=== PATIENT | female | born 1980 | race African-American/Black ===

== ENCOUNTER 2017-08-08 04:03 | Emergency (ER) | payer OTHER ==
[~2017-08-08] VITALS: Ht 162.6 cm; Wt 72.6 kg
--- NOTE | ~2017-08-08 | EKG ---
[address] [address] [facility] [place] [address] ELECTROCARDIOGRAM REPORT Name: GUILLEYUNIER JIMMY [facility] [id number] Admission: 08/08/17 Attend Phys: Discharge: 08/08/17 Date of : 80 Report #: [id number] THIS REPORT FOR: //name// [facility] ED Test Date: 2017-08-08 Test Time: 04:11:13 Pat Name: YUNIER HAN Department: Room: Gender: F Pharmacometrician: JAMARCUS : 1980 Requested By: Astrid Yuan Order Number: [id number] MD: Peter Langley Measurements Intervals [place] Rate: 121 P: 51 OR: 140 QRS: 54 QRSD: 88 T: -20 QT: 313 QTc: 444 Interpretive Statements Sinus tachycardia Nonspecific ST and T wave abnormality No previous ECG available for comparison Electronically Signed On 08-08-2017 8:26:12 SUPERVISOR GRIPS by Peter Langley [email or web address] <ELECTRONICALLY SIGNED> By: Peter Langley MD, [facility] 08/08/17 0826 [id number] [id number] Peter Langley MD, FACC /EPI
--- NOTE | ~2017-08-08 | EKG ---
[address] [address] ELECTROCARDIOGRAM REPORT Name: YUNIER HAN JIMMY [facility] [id number] Admission: 08/08/17 Attend Phys: Discharge: 08/08/17 Date of : 80 Report #: [id number] THIS REPORT FOR: //name// [facility] ED Test Date: 2017-08-08 Test Time: 07:02:52 Pat Name: YUNIER HAN Department: Room: Gender: F Software Engineer Sales: IDA : 1980 Requested By: Mati Rdz Order Number: [id number] MD: Peter Langley Measurements Intervals [place] Rate: 104 P: 37 PA: 138 QRS: 50 QRSD: 86 T: 3 QT: 368 QTc: 484 Interpretive Statements Sinus tachycardia Borderline prolonged QT interval No previous ECG available for comparison Electronically Signed On 08-08-2017 8:29:57 DIE STORAGE WORKER by Peter Langley [email or web address] <ELECTRONICALLY SIGNED> By: Peter Langley MD, [facility] 08/08/17 0829 0702 0702 Peter Langley MD, FACC /EPI
[~2017-08-08 04:03] MED LIST: DOXYCYCLINE 10100 MG PO
[2017-08-08 04:40] LABS: AMP/METHAMP POSITIVE (Negative); BARBITURATES Negative (Negative); BENZODIAZEPINES Negative (Negative); COCAINE Negative (Negative); METHADONE Negative (Negative); OPIATES Negative (Negative); PCP Negative (Negative); THC Negative (Negative)
[2017-08-08 04:46] LABS: ABSOLUTE NEUTROPHILS 11.1 thou/uL (1.4-8.2); BASOPHILS 0.7 % (0.0-2.0); EOSINOPHILS 0.3 % (0.0-3.0); HEMOGLOBIN 13.4 gm/dL (12.0-15.0); LYMPHOCYTES 14.9 % (24.0-44.0); MCH 28.1 pg (26.0-34.0); MCHC 32.8 g/dL (28.0-37.0); MCV 85.9 fL (80.0-100.0); MONOCYTES 7.2 % (1.0-8.0); PLATELET COUNT 404 thou/uL (150-400); POLYS 76.9 % (36.0-66.0); RBC 4.77 mil/uL (4.20-5.00); RDW 12.8 % (10.5-14.5); WBC 14.5 thou/uL (4.0-11.0)
[2017-08-08 04:47] LABS: MANUAL DIFF NO
[2017-08-08 04:54] LABS: CALCIUM 9.3 mg/dL (8.5-10.1); CREATININE 0.9 mg/dL (0.6-1.0); POTASSIUM 3.4 mmol/L (3.5-5.1)
[2017-08-08] MEDS ORDERED: NOHOMEMEDICATIONS (05:02)
[2017-08-08 07:28] VITALS: BP 133/88
== END 2017-08-08 07:28 | disposition home or self-care (01) ==
LOC: ER
PROVIDERS: Emergency Medicine
DX: F15.10 Other stimulant abuse, uncomplicated (principal); Z88.5 Allergy status to narcotic agent

== ENCOUNTER 2017-09-27 21:37 | Inpatient (IN) | payer OTHER ==
[~2017-09-27] VITALS: Ht 157.5 cm; Wt 73.4 kg
--- NOTE | ~2017-09-27 | EKG ---
[address] [place] [address] ELECTROCARDIOGRAM REPORT Name: YUNIER HAN Room #: 214-P ADM IN M.R.#: [id number] Admission: 09/28/17 Attend Phys: Chelsea Rust Discharge: Date of : 80 Report #: [id number] THIS REPORT FOR: //name// [facility] ED Test Date: 2017-09-28 Test Time: 01:10:32 Pat Name: YUNIER HAN Department: Room: 214 Gender: F Facilities Maintenance Engineer: fred : 1980 Requested By: Mati Rdz Order Number: [id number] MD: Peter Langley Measurements Intervals [place] Rate: 76 P: 49 WI: 132 QRS: 63 QRSD: 87 T: 39 QT: 403 QTc: 454 Interpretive Statements Sinus rhythm Abnormal R-wave progression, early transition Baseline wander in lead(s) V1 Compared to ECG 08/08/2017 07:02:52 Sinus tachycardia no longer present Electronically Signed On 09-28-2017 7:34:45 EXTRUSION DIE COORDINATOR by Peter Langley [email or web address] <ELECTRONICALLY SIGNED> By: Peter Langley MD, [facility] 09/28/17 0734 0110 0110 Peter Langley MD, [facility] /EPI
[~2017-09-27 21:37] MED LIST changes: +NOHOMEMEDICATIONS
[2017-09-27 21:38] VITALS: BP 68/35
[2017-09-27 21:50] LABS: ABSOLUTE NEUTROPHILS 5.1 thou/uL (1.4-8.2); BASOPHILS 0.9 % (0.0-2.0); EOSINOPHILS 1.3 % (0.0-3.0); HEMATOCRIT 39.9 % (37.0-47.0); HEMOGLOBIN 13.3 gm/dL (12.0-15.0); LYMPHOCYTES 34.4 % (24.0-44.0); MCH 29.1 pg (26.0-34.0); MCHC 33.2 g/dL (28.0-37.0); MCV 87.7 fL (80.0-100.0); MONOCYTES 6.4 % (1.0-8.0); PLATELET COUNT 324 thou/uL (150-400); RBC 4.55 mil/uL (4.20-5.00); RDW 13.3 % (10.5-14.5); WBC 8.9 thou/uL (4.0-11.0)
[2017-09-27 21:59] LABS: ANION GAP 7 mmol/L (7-16); BUN 13 mg/dL (7-18); CALCIUM 9.1 mg/dL (8.5-10.1); CHLORIDE 104 mmol/L (98-107); CO2 28 mmol/L (21-32); CREATININE 0.8 mg/dL (0.6-1.0); GLUCOSE 122 mg/dL (74-106); POTASSIUM 4.2 mmol/L (3.5-5.1); SODIUM 139 mmol/L (136-145)
[2017-09-27 22:05] LABS: ALBUMIN 3.5 g/dL (3.4-5.0); DIRECT BILIRUBIN < 0.1 mg/dL (<0.1-0.3); SALICYLATE < 2.8 mg/dL (2.8-20.0); SGOT 32 U/L (15-37); SGPT 54 U/L (30-65); TOTAL BILIRUBIN 0.3 mg/dL (<0.1-1.0); TOTAL PROTEIN 7.4 g/dL (6.4-8.2)
[2017-09-28] VITALS (7 sets, daily range): BP systolic 87–113; BP diastolic 50–63
[2017-09-28 00:22] LABS: AMP/METHAMP POSITIVE (Negative); BARBITURATES Negative (Negative); BENZODIAZEPINES Negative (Negative); COCAINE Negative (Negative); METHADONE Negative (Negative); OPIATES Negative (Negative); PCP Negative (Negative)
== END 2017-09-28 18:35 | disposition home or self-care (01) | DRG 918 ==
LOC: ER 21:37 → 2N 09-28 01:31 → EROBS 09-28 01:31 → 2N 09-28 02:18
PROVIDERS: Emergency Medicine
DX: T43.591A Poisoning by other antipsychotics and neuroleptics, accidental (unintentional), initial encounter (principal); F32.9 Major depressive disorder, single episode, unspecified; I95.9 Hypotension, unspecified; F41.9 Anxiety disorder, unspecified; G47.00 Insomnia, unspecified; Z88.8 Allergy status to other drugs, medicaments and biological substances; Z88.5 Allergy status to narcotic agent
CPT/HCPCS: 10081

== ENCOUNTER 2021-06-04 06:52 | Emergency (ER) | payer OTHER ==
[~2021-06-04] VITALS: Ht 157.5 cm; Wt 81.7 kg
[2021-06-04] MEDS ORDERED: IBUPROFEN 800800 M1 PO (08:19)
[2021-06-04 08:29] VITALS: BP 129/83
== END 2021-06-04 08:29 | disposition home or self-care (01) ==
LOC: ER 06:52
DX: R51.9 Headache, unspecified (principal); Z90.49 Acquired absence of other specified parts of digestive tract; Z88.5 Allergy status to narcotic agent; Z88.8 Allergy status to other drugs, medicaments and biological substances